=== PATIENT | male | born 1940 | race Caucasian/White ===

== ENCOUNTER 2018-05-31 06:45 | Day surgery (SDC) | payer OTHER ==
[~2018-05-31] VITALS: Ht 185.4 cm; Wt 98.9 kg
[~2018-05-31 06:45] MED LIST: ALBUTEROL2.5 MG/3 M INH; ASPIR-LOW81 MG PO; ATORVASTATIN CA80 MG PO; COENZYME Q10100 M1 PO; COMBIVENT RESPIM4 GM INH; CYMBALTA60 MG PO; LANTUS100 UNITS/ SUB-Q; LECITHIN1200 M1 PO; LISINOPRIL10 MG PO; METFORMIN HCL850 MG PO; METOPROLOL TART50 MG PO; MINIPRESS1 MG PO; MIRALAX17 GM PO; MUCUS RELIEF600 M1 PO; MULTIPLE VITAM1 EAC1 PO; NORCO 5-325 TA1 EACH PO; OMEPRAZOLE20 MG PO; VITAMIN C500 M4 PO
--- NOTE | 2018-05-31 08:54 | NUR ---
05/31/18 0854 Yg Ballesteros REPOSITIONED IN BED AND GAVE SIPS OF WATER WITHOUT PROBLEMS. DENIES NAUSEA OR PAIN.
--- NOTE | 2018-05-31 10:31 | OR ---
[facility] [address], [place] [address] Signed DATE OF OPERATION: 05/31/2018 SURGEON: Bridger Millan MD UPPER ENDOSCOPY REPORT PREOPERATIVE DIAGNOSES: 1. Gastroesophageal reflux disease. 2. Anemia with hemoglobin 12.8 and mean cell volume of 94. 3. Thrombocytopenia at 98,000. POSTOPERATIVE DIAGNOSES: 1. Proximal gastritis. 2. Small hiatal hernia. PROCEDURES: EGD with CLOtest and biopsies of the antrum and body of stomach. ESTIMATED BLOOD LOSS: None. INDICATIONS: Kaylah is a 77-year-old gentleman, who has significant coronary artery disease and peripheral arterial disease along with his COPD. He was asked to see me for upper endoscopy. He has had acid reflux clear back in 1966 while he was in the [place]. He has been on omeprazole twice a day and Tums and still having breakthrough symptoms. He is also known to be anemic with a hemoglobin of 12.8 and a mean cell volume of 94. He also seems to have chronic thrombocytopenia around 98,000. He remembers a colonoscopy somewhere around 5 or 10 years ago. However, he has never had upper endoscopy. In the office, I gave him a pamphlet on upper endoscopy. We looked at that pamphlet together. He understands the nature of the test along with the risks including, but not limited to gas bloating, crampy abdominal pain, bleeding, perforation, requiring surgery, and missed diagnosis. He also understands the need for IV conscious sedation. Given his significant medical history including his cardiac and pulmonary history as well as his diabetes and his need for daily hydrocodone, we asked that an anesthesia provider help us with increased monitoring and sedation with propofol. He had expressed understanding and wished to proceed. PROCEDURE NOTE: Kaylah was taken into our endoscopy suite and placed in the supine semi-recumbent Electronically Signed By: BRIDGER MILLAN MD 05/31/18 1031 PATIENT NAME: KAYLAH THORNE OPERATIVE REPORT DATE OF : 44 REPORT #: [id number] PHYSICIAN: BRIDGER MILLAN MD PCP: CARLOS HERNANDEZ MD REPORT IS CONFIDENTIAL AND NOT TO BE RELEASED WITHOUT AUTHORIZATION [facility] [address], [place] [address] Signed position. His posterior oropharynx was anesthetized with lidocaine spray. A bite block was utilized for the case. He was given IV sedation per our nurse sling operator with propofol. The adult gastroscope was introduced and passed all the way out into the third portion of the duodenum under direct visualization of camera without difficulty. The duodenum and pyloric channel were unremarkable. The antrum for the most part was unremarkable. We went ahead and took a biopsy from the antrum for pathologic review as well as CLOtest. However, the entire proximal half of the stomach showed cobblestoning and patchy erythematous changes consistent with gastritis. We could not convince ourselves necessary that he had gastric varices. Although it is always possible. It looks like he has just a small hiatal hernia. The scope was withdrawn up through the area of the GE junction, which was compliant without stricture. He had very minimal disruption to the Z-line. There was no Sifuentes's mucosa, no distal esophagitis. No obvious esophageal varices. After this, the middle and proximal esophagus were unremarkable. After this, the gas was suctioned out and the gastroscope removed. Kaylah tolerated the procedure quite well. RECOMMENDATIONS: I will see Kaylah back in my office in 7 to 14 days to review his results. 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 He might also consider ultrasound of the upper abdomen, particularly the liver and spleen to look for hepatosplenomegaly and/or varices. Bridger Millan MD ALB/MODL /[id number] cc: MD Carlos Polo MD Andrew L Bower, MD Copies: TOM GREGORIO MD, TIMOTHY MD Electronically Signed By: BRIDGER MILLAN MD 05/31/18 1031 PATIENT NAME: KAYLAH THORNE OPERATIVE REPORT DATE OF : 44 REPORT #: [id number] PHYSICIAN: BRIDGER MILLAN MD PCP: CARLOS HERNANDEZ MD REPORT IS CONFIDENTIAL AND NOT TO BE RELEASED WITHOUT AUTHORIZATION [facility] [address] [place] [id number] Signed BRIDGER MILLAN MD ~ Electronically Signed By: BRIDGER MILLAN MD 05/31/18 1031 PATIENT NAME: MATIKAYLAH JANA OPERATIVE REPORT DATE OF : 44 REPORT #: [id number] PHYSICIAN: BRIDGER MILLAN MD PCP: CARLOS HERNANDEZ MD REPORT IS CONFIDENTIAL AND NOT TO BE RELEASED WITHOUT AUTHORIZATION
--- NOTE | 2018-05-31 13:25 | NUR ---
PT IS ALERT, ORIENTED AND SUPPORTED BY HIS . THIS IS PT'S FIRST EGD, AND IS HOPEFUL IT WILL PRODUCE SOME REASON FOR PT'S ACID REFLEX HE STATED HE SUFFERS FROM. BOTH PLEASANT, SEEMED PREPARED. EXTENDED A BLESSING, WILL FOLLOW NEEDED
== END 2018-05-31 09:08 | disposition home or self-care (01) ==
LOC: DS 06:45 → OPS 06:45 → DS 08:15 → OPS 09:08
PROVIDERS: Colon & Rectal Surgery
PROC: 0DB68ZX Excision of Stomach, Via Natural or Artificial Opening Endoscopic, Diagnostic (ICD-10-PCS; 2018-05-31)
PROC: 0DB78ZX Excision of Stomach, Pylorus, Via Natural or Artificial Opening Endoscopic, Diagnostic (ICD-10-PCS; principal; 2018-05-31 08:15)
DX: K29.70 Gastritis, unspecified, without bleeding (principal); K44.9 Diaphragmatic hernia without obstruction or gangrene; D64.9 Anemia, unspecified; D69.6 Thrombocytopenia, unspecified; K31.89 Other diseases of stomach and duodenum; I25.10 Atherosclerotic heart disease of native coronary artery without angina pectoris; E78.5 Hyperlipidemia, unspecified; E66.9 Obesity, unspecified; E11.9 Type 2 diabetes mellitus without complications; J44.9 Chronic obstructive pulmonary disease, unspecified; F41.9 Anxiety disorder, unspecified; K21.9 Gastro-esophageal reflux disease without esophagitis; F32.9 Major depressive disorder, single episode, unspecified; M19.90 Unspecified osteoarthritis, unspecified site; Z79.4 Long term (current) use of insulin; Z88.0 Allergy status to penicillin; Z88.2 Allergy status to sulfonamides; Z88.8 Allergy status to other drugs, medicaments and biological substances; Z79.899 Other long term (current) drug therapy; Z68.28 Body mass index [BMI] 28.0-28.9, adult
CPT/HCPCS: 86677; 88305; 88342; J2704; J7120